=== PATIENT | female | born 1985 | race Caucasian/White ===

== ENCOUNTER 2018-08-06 16:43 | Emergency (ER) | payer OTHER ==
[~2018-08-06] VITALS: Ht 160 cm; Wt 60.1 kg
[2018-08-06 16:50] VITALS: BP 135/77
--- NOTE | 2018-08-06 17:11 | NUR ---
PT AMBULATES W/ STEADY GAIT AND VSS TO LOBBY TO WAIT FOR AVAILABLE BED AFTER PROVIDING URINE SAMPLE.
--- NOTE | 2018-08-06 18:00 | NUR ---
PT SITTING IN THE LOBBY PLAYING ON CELL PHONE. NO NEW COMPLAINTS NOR CHANGE IN CONDITION. PT W/ VSS. WILL CONTINUE TO MONITOR.
--- NOTE | 2018-08-06 18:56 | NUR ---
PT SITTING IN THE LOBBY W/ VSS. NO NEW COMPLAINTS OR CHANGE IN CONDITION.
--- NOTE | 2018-08-06 19:32 | NUR ---
AMBULATED TO ER BED 7
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
[2018-08-06] MEDS ORDERED: LORazepam 1 MG TAB PO ONE (21:15)
[2018-08-06] MEDS ORDERED: ALBUTEROL 0.083% 2.5 MG/3 ML NEBU INH ONE (21:15)
--- NOTE | 2018-08-06 22:20 | NUR ---
Patient discharged with v/s stable. Written and verbal after care instructions given and explained. Patient alert, oriented and verbalized understanding of instructions. Ambulatory with steady gait. All questions addressed prior to discharge. ID band removed. Patient advised to follow up with PMD. Rx of LORAZEPAM, PROMETHAZINE, VENTOLIN given. Patient educated on indication of medication including possible reaction and side effects. Opportunity to ask questions provided and answered.
[2018-08-06 22:21] VITALS: BP 130/82
== END 2018-08-06 22:21 | disposition home or self-care (01) ==
LOC: MED 16:43
DX: F41.9 Anxiety disorder, unspecified (principal); R05 Cough; Z76.0 Encounter for issue of repeat prescription; F32.9 Major depressive disorder, single episode, unspecified; Z87.891 Personal history of nicotine dependence; E07.9 Disorder of thyroid, unspecified
CPT/HCPCS: 81025; 94640; 94760; 99284; J7613